=== PATIENT | male | born 1980 | race Caucasian/White ===

== ENCOUNTER 2021-09-03 02:55 | Emergency (ER) | payer SELFPAY ==
[~2021-09-03] VITALS: Ht 152.4 cm; Wt 52.2 kg
[2021-09-03 03:10] VITALS: BP 106/64
[2021-09-03] MEDS ORDERED: PROM118S5 PO (03:26)
[2021-09-03] MEDS ORDERED: BENZ200C4 PO (03:26)
[2021-09-03 03:44] VITALS: BP 106/64
== END 2021-09-03 03:44 | disposition home or self-care (01) ==
LOC: MED 02:55
DX: B34.9 Viral infection, unspecified (principal); Z20.822 Contact with and (suspected) exposure to COVID-19
CPT/HCPCS: 36415; 87635; 99283; C9803